=== PATIENT | male | born 1970 | race Caucasian/White ===

== ENCOUNTER 2020-01-01 23:25 | Emergency (ER) | payer SELFPAY ==
[~2020-01-01] VITALS: Ht 177.8 cm; Wt 78.9 kg
--- NOTE | 2020-01-01 23:46 | NUR ---
PT PRESENTED TO THE ER WITH A GENERALIZED BODY RASH. RASH NOTED ON FACE, NECK, BACK, CHEST, ABD, BUE AND BLE. BUE REDNESS, SCABS, PAIN/BURNING FROM ITCHING.
--- NOTE | 2020-01-01 23:47 | NUR ---
PT LAST TOOK BENADRYL AT 1500
--- NOTE | 2020-01-02 00:27 | NUR ---
Patient discharged to home in stable condition. Written and verbal after care instructions given. Patient verbalizes understanding of instruction and RX. PT AMBULATED OUT WITH A STEADY GAIT. VSS
[2020-01-02 00:29] VITALS: BP 138/89
== END 2020-01-02 00:38 | disposition home or self-care (01) ==
LOC: ER 23:32
DX: L03.114 Cellulitis of left upper limb (principal); L03.113 Cellulitis of right upper limb; L03.116 Cellulitis of left lower limb; L03.115 Cellulitis of right lower limb; L03.319 Cellulitis of trunk, unspecified; L03.211 Cellulitis of face; R21 Rash and other nonspecific skin eruption; J45.909 Unspecified asthma, uncomplicated; F10.10 Alcohol abuse, uncomplicated; Y90.9 Presence of alcohol in blood, level not specified; Z79.82 Long term (current) use of aspirin

== ENCOUNTER 2020-01-02 22:09 | Emergency (ER) | payer SELFPAY ==
--- NOTE | 2020-01-02 23:02 | NUR ---
CALLED PT TO BE TRIAGED, NOT IN WAITING ROOM
--- NOTE | 2020-01-02 23:24 | NUR ---
CALLED PT TO BE TRIAGED, NO ANSWER
--- NOTE | 2020-01-02 23:33 | NUR ---
CALLED TO BE TRIAGED, NO ANSWER
== END 2020-01-02 23:35 | disposition left against medical advice (07) ==
LOC: ER 22:10
DX: Z53.21 Procedure and treatment not carried out due to patient leaving prior to being seen by health care provider (principal)